=== PATIENT | female | born 1995 | race Two or more races ===

== ENCOUNTER 2021-12-12 20:40 | Emergency (ER) | payer OTHER ==
[~2021-12-12] VITALS: Ht 160 cm; Wt 64.4 kg
[2021-12-12] MEDS ORDERED: PROMETRIUM200 MG (21:07)
[2021-12-12] MEDS ORDERED: PRENATABS FA T1 EACH (21:08)
[2021-12-12] MEDS ORDERED: FOLIC ACID1 MG PO (21:09)
== END 2021-12-12 22:59 | disposition home or self-care (01) ==
LOC: ER 20:40
DX: O20.9 Hemorrhage in early pregnancy, unspecified (principal); Z3A.14 14 weeks gestation of pregnancy

== ENCOUNTER 2022-06-16 04:07 | Inpatient (IN) | payer OTHER ==
[~2022-06-16] VITALS: Ht 160 cm; Wt 87.5 kg
[~2022-06-16 04:07] MED LIST: FOLIC ACID1 MG PO; PRENATABS FA T1 EACH; PROMETRIUM200 MG
[2022-06-17] MEDS ORDERED: RHOGAM ULTR1500 UNIT IM (15:05)
== END 2022-06-18 11:37 | disposition home or self-care (01) | DRG 807 ==
LOC: LDR 04:07 → OB/GYN 04:07 → LDR 06-23 14:16
PROVIDERS: ADMIT Specialist; ATTEND Specialist
PROC: 10E0XZZ Delivery of Products of Conception, External Approach (ICD-10-PCS; principal; 2022-06-16)
PROC: 4A1HXCZ Monitoring of Products of Conception, Cardiac Rate, External Approach (ICD-10-PCS; 2022-06-16)
DX: O80 Encounter for full-term uncomplicated delivery (principal); Z37.0 Single live birth; Z3A.39 39 weeks gestation of pregnancy; Z20.822 Contact with and (suspected) exposure to COVID-19